=== PATIENT | female | born 1955 | race Caucasian/White ===

== ENCOUNTER → 2018-06-04 13:57 | Outpatient (CLI) | payer OTHER, SELFPAY ==
[2018-06-04 14:38] LABS: Alanine Aminotransferase 26 IU/L (9-52); Albumin 4.6 g/dL (3.5-5.0); Albumin Globulin Ratio 1.7 (1.0-2.8); Alkaline Phosphatase 79 U/L (38-126); Aspartate Aminotransferase 23 IU/L (14-36); BUN Creatinine Ratio 18.6 (6-22); Bilirubin Total 0.3 mg/dL (0.2-1.3); Blood Urea Nitrogen 13 mg/dL (7-17); Calcium 8.8 mg/dL (8.4-10.2); Carbon Dioxide 27 mmol/L (22-32); Chloride 100 mmol/L (98-107); Cholesterol 269 mg/dL (140-199); Estimated Glomerular Filt Rate > 60.0 mL/min (>60); Globulin 2.7 g/dL (1.7-4.1); Glucose 95 mg/dL (80-110); HDL Cholesterol 60 mg/dL (40-60); HEMOLYSIS < 15 (0-50); LDL Cholesterol Calculated 179 mg/dL (<100); Potassium 4.6 mmol/L (3.4-5.1); Sodium 141 mmol/L (137-145); Total Protein 7.3 g/dL (6.3-8.2); Triglycerides 150 mg/dL (35-150)
== END ==
PROVIDERS: PCP Family Medicine; Visit Provider Family Medicine
DX: E78.2 Mixed hyperlipidemia (principal)
CPT/HCPCS: 36415; 80053; 80061

== ENCOUNTER → 2018-11-17 09:28 | Outpatient (CLI) | payer OTHER, SELFPAY ==
[2018-11-17 10:05] LABS: Add Manual Diff / Slide Review NO; Basophils Absolute Auto 0 /uL (0-100); Basophils Percent Auto 0.8 % (0-2); Eosinophils Absolute Auto 100 /uL (0-450); Eosinophils Percent Auto 2.6 % (2-4); Hematocrit 40.8 % (36-46); Hemoglobin 13.3 g/dL (12.0-16.0); Lymphocytes Absolute Auto 1500 /uL (1100-4500); Lymphocytes Percent Auto 29.7 % (25-40); Mean Corpuscular HGB Conc 32.6 % (30-36); Mean Corpuscular Hemoglobin 28.3 PG (26-34); Mean Corpuscular Volume 86.7 fL (80-100); Monocytes Absolute Auto 400 /uL (0-900); Monocytes Percent Auto 7.6 % (3-14); Neutrophils Absolute Auto 2900 /uL (1500-7000); Neutrophils Percent Auto 59.3 % (50-75); Platelet Count 271 X10^3/uL (150-400); Red Cell Distribution Width 13.5 % (11.6-14.8); White Blood Cell Count 4.9 X10^3/uL (4.5-11.0)
[2018-11-17 11:06] LABS: Alanine Aminotransferase 30 IU/L (9-52); Albumin 4.4 g/dL (3.5-5.0); Albumin Globulin Ratio 1.6 (1.0-2.8); Alkaline Phosphatase 69 U/L (38-126); Aspartate Aminotransferase 26 IU/L (14-36); Bilirubin Total 0.3 mg/dL (0.2-1.3); Blood Urea Nitrogen 16 mg/dL (7-17); Calcium 9.1 mg/dL (8.4-10.2); Carbon Dioxide 30 mmol/L (22-32); Chloride 103 mmol/L (98-107); Cholesterol 264 mg/dL (140-199); Estimated Glomerular Filt Rate > 60.0 mL/min (>60); Globulin 2.7 g/dL (1.7-4.1); Glucose 98 mg/dL (80-110); HDL Cholesterol 56 mg/dL (40-60); HEMOLYSIS < 15 (0-50); LDL Cholesterol Calculated 178 mg/dL (<100); Sodium 140 mmol/L (137-145); Total Protein 7.1 g/dL (6.3-8.2); Triglycerides 148 mg/dL (35-150)
[2018-11-17 23:34] LABS: Vitamin D 25 Hydroxy (D3) 50.2 ng/mL (30.0-100.0)
[2018-11-17 23:47] LABS: Thyroid Stimulating Hormone 1.18 uIU/mL (0.47-4.68)
== END ==
PROVIDERS: PCP Family Medicine; Visit Provider Family Medicine
DX: E78.2 Mixed hyperlipidemia (principal); F32.9 Major depressive disorder, single episode, unspecified; R89.9 Unspecified abnormal finding in specimens from other organs, systems and tissues; Z13.0 Encounter for screening for diseases of the blood and blood-forming organs and certain disorders involving the immune mechanism; Z13.1 Encounter for screening for diabetes mellitus
CPT/HCPCS: 36415; 80053; 80061; 82306; 84443; 85025

== ENCOUNTER → 2019-03-13 12:32 | Outpatient (CLI) | payer OTHER, SELFPAY ==
[2019-03-13 13:20] LABS: Cholesterol 277 mg/dL (140-199); HDL Cholesterol 60 mg/dL (40-60); LDL Cholesterol Calculated 186 mg/dL (<100); Triglycerides 157 mg/dL (35-150)
== END ==
PROVIDERS: PCP Family Medicine; Visit Provider Family Medicine
DX: E78.2 Mixed hyperlipidemia (principal)
CPT/HCPCS: 36415; 80061

== ENCOUNTER → 2019-03-13 13:39 | Outpatient (CLI) | payer OTHER, SELFPAY ==
--- NOTE | 2019-03-13 | DI.MG.S_ITS ---
BILATERAL DIGITAL SCREENING MAMMOGRAM 3D/2D WITH CAD: 03/13/2019 CLINICAL: Routine screening. Comparison is made to exams dated: 06/18/2013 mammogram, 03/13/2011 mammogram, and 05/10/2009 mammogram - [facility]. The tissue of both breasts is predominantly fatty. Current study was also evaluated with a Computer Aided Detection (CAD) system. No significant masses, calcifications, or other findings are seen in either breast. There has been no significant interval change. IMPRESSION: NEGATIVE There is no mammographic evidence of malignancy. A 1 year screening mammogram is recommended. This exam was interpreted at Station ID: [id number]. NOTE: For mammograms, a report in lay terms will be sent to the patient. Approximately 15% of breast malignancies will not be visualized mammographically. In the management of a palpable breast mass, a negative mammogram must not discourage biopsy of a clinically suspicious lesion. Electronically Signed By: Florin avalos/evelyne:03/13/2019 14:20:41 letter sent: Normal Exam ACR BI-RADS Category 1: Negative [id number]
--- NOTE | 2019-03-13 13:40 | DI.RAD.S_ITS ---
This blank DEXA report has been sent in error by the PACS system. The correct and complete report will be forthcoming in 1-2 days. Thank you for your patience and understanding. Dictated by: Varun Hodgson M.D. on 03/13/2019 at 15:28 Approved by: Timur Kenney M.D. on 06/23/2019 at 9:36
== END ==
PROVIDERS: PCP Family Medicine; Visit Provider Family Medicine
DX: Z12.31 Encounter for screening mammogram for malignant neoplasm of breast (principal); Z13.820 Encounter for screening for osteoporosis; Z78.0 Asymptomatic menopausal state; Z82.62 Family history of osteoporosis; Z87.891 Personal history of nicotine dependence
CPT/HCPCS: 77063; 77067; 77080

== ENCOUNTER 2019-05-04 12:22 | Day surgery (SDC) | payer OTHER, SELFPAY ==
--- NOTE | 2019-05-04 | PATH_ITS ---
[facility] Accession Number: [id number] . 01 Material submitted: . PART A: cecum - CEAL POLYP PART B: ileo-cecal valve - ILEOCECAL VALVE POLYP PART C: colon - POLYP AT 20 . 02 Diagnosis: A. Cecum, Polyp, Biopsy: Tubular adenoma. . B. Ileocecal Valve, Polyp, Biopsy: Benign lymphoid aggregate. . C. Colon, Polyp at 20, Biopsy: Tubular adenoma. MRV 05/06/2019 1011 Local . 02 Electronically signed: . Janet Galicia MD, Pathologist NPI- [id number] . 01 Gross description: . Part A: CEAL POLYP: Received in formalin are 2 fragment(s) of tellez, soft tissue measuring 0.1 x 0.1 x 0.1 cm to 0.2 x 0.1 x 0.1 cm which is entirely submitted and submitted entirely in 1 cassette(s) Part B: ILEOCECAL VALVE POLYP: Received in formalin are 3 fragment(s) of tellez, soft tissue measuring 0.1 x 0.1 x 0.1 cm to 0.2 x 0.2 x 0.2 cm which is entirely submitted and submitted entirely in 1 cassette(s) Part C: POLYP AT 20: Received in formalin are multiple fragment(s) of tellez, soft tissue measuring 0.1 x 0.1 x 0.1 cm to 0.2 x 0.2 x 0.2 cm which is entirely submitted and submitted entirely in 1 cassette(s) /[facility] 05/05/2019 1825 Local . 02 Pathologist provided ICD-10: D12.0, D12.6 . 02 CPT . 098863, 425042, 530660 Performed at: 01 [facility] [address] [place] [address], [place], [place] [id number] MD Yohan Sosa MD Phone: [phone] Performed at: 02 [facility] [address] [place], [place] [id number] MD Janet Galicia MD Phone: [phone]
[2019-05-04 12:52] VITALS: BP 113/72; PULSE 99; RESP 18; TEMP 36.4; O2SAT 93
[2019-05-04 13:00] VITALS: BMI 29.5
[2019-05-04] MEDS: LACTATED RINGERS 1,000 ML 42 ML IV (13:12)
--- NOTE | 2019-05-04 13:14 | SUR.PREOP ---
Talking non-stop, states that she is very anxious, ambulated to the bathroom and voided. Spouse here.
--- NOTE | 2019-05-04 14:20 | PM.HP.1 ---
History of Present Illness History of Present Illness Date Patient Seen: 05/04/19 Time Patient Seen: 14:20 Chief complaint: [id number] Narrative: The patient is here for colonoscopy. She is extremely nervous and insisted on deep sedation with the involvement of anesthesia as she did not tolerate simple sedation well. Patient History Medical History Ankle pain (Chronic ~2012) Anorexia nervosa (Chronic) Anxiety (Chronic) Arthritis (Acute) Carpal tunnel syndrome (Chronic ~1989) Chicken pox (Resolved ~1960) Colon polyps (Chronic ~2007) Hearing deficit (Chronic) Hearing loss (Chronic ~1994) Hemorrhoid (Chronic ~08/2011) History of falling (Acute) History of pneumonia (Acute) Knee pain (Chronic ~2002) Measles (Resolved ~1957) Migraines (Chronic ~1993) Mumps (Resolved ~1961) Osteoarthritis (Chronic ~2003) Plantar warts (Resolved ~1995) Pneumonia (Acute) Post traumatic stress disorder (PTSD) (Chronic) Recurrent sinusitis (Chronic) Seasonal allergies (Chronic) Shoulder pain (Chronic ~2003) Tinnitus (Chronic ~1993) Vertigo (Chronic ~2012) Surgical History Anesthesia (Resolved) History of carpal tunnel repair History of ectopic (Resolved ~1989) History of sinus surgery (Resolved ~1998) History of third molar tooth extraction History of tonsillectomy Status post breast reduction Status post colonoscopy Status post colonoscopy Status post hysterectomy Status post knee surgery Status post rotator cuff repair Family History Mother Hypertension Social History marital status: household members: spouse occupational status: disabled Smoking Status: Never smoker alcohol intake: never substance use type: does not use Family & Social History Family History Mother Hypertension Social History: household members spouse Tobacco & Substance use: Smoking Status Never smoker alcohol intake never Meds Home Medications and Allergies Home Medications Medication Instructions Recorded Confirmed Type CALCIUM CARBONATE/VITAMIN D3 600 mg PO Q DAY #0 10/30/09 04/23/19 History (Oyster Shell Calcium-Vit D Tab) CHOLECALCIFEROL (VITAMIN D3) 2,000 #0 03/28/10 09/19/19 History (Vitamin D3) Coenzyme Q10 (#COQ10) 60 mg PO HS #0 12/19/11 04/23/19 History MULTIVITAMIN (#MULTIPLE VITAMINS) 1 cap PO Q DAY #0 12/19/11 04/23/19 History Magnesium Aspartate/Potassiu 1 cap PO Q DAY #0 12/19/11 04/23/19 History (#ASPARTATE MG & K 90 MG-90 MG) prochlorperazine 25 mg rectal 25 mg MI Q6HP PRN #20 supp 02/03/18 04/23/19 Rx suppository carisoprodol 350 mg tablet 350 mg PO TIDP #90 tab 04/23/19 04/23/19 Rx clonazepam 2 mg tablet 4 mg PO HS #60 tab 04/23/19 04/23/19 Rx dextroamphetamine-amphetamine 10 10 mg PO BID #60 tab 04/23/19 04/23/19 Rx mg tablet hydrocodone 5 mg-acetaminophen 325 1 tab PO Q4HP PRN #60 tab 04/23/19 04/23/19 Rx mg tablet hydroxyzine HCl 25 mg tablet 25 mg PO Q6HP PRN #50 tab 04/23/19 04/23/19 Rx pravastatin 40 mg tablet 80 mg PO HS #180 tab 04/23/19 04/23/19 Rx prochlorperazine maleate 5 mg 5 mg PO Q6-8H PRN #60 tab 04/23/19 04/23/19 Rx tablet sumatriptan 20 mg/actuation nasal 20 mg INTRANASAL PRN #1 spray 04/23/19 04/23/19 Rx spray sumatriptan succinate 100 mg tablet 100 mg PO SEE INSTRUCTIONS #12 tab 04/23/19 04/23/19 Rx sumatriptan succinate 6 mg/0.5 mL 6 mg SUBCUT SEE INSTRUCTIONS #4 ea 04/23/19 04/23/19 Rx subcutaneous solution zolpidem 10 mg tablet 10 mg PO HS #14 tab 04/23/19 04/23/19 Rx Allergies Allergy/AdvReac Type Severity Reaction Status Date / Time doxycycline [DOXYCYCLINE] Allergy Severe RASH ALL Verified 05/04/19 12:48 OVER azithromycin [From ZITHROMAX] Allergy Mild nasuea Verified 05/04/19 12:48 cefuroxime [CEFUROXIME] Allergy Mild NAUSEA Verified 05/04/19 12:48 codeine [CODEINE] Allergy Mild SHAKES, Verified 05/04/19 12:48 rash, fever, nausea Penicillins [PENICILLINS] Allergy Mild HIVES, Verified 05/04/19 12:48 fever, nausea pravastatin [PRAVASTATIN] Allergy Mild MYALGIAS, Verified 05/04/19 12:48 AND JOINT PAIN propoxyphene [PROPOXYPHENE] Allergy Mild Rash, Verified 05/04/19 12:48 fever, nausea tetracycline [TETRACYCLINE] Allergy Unknown Rash, Verified 05/04/19 12:48 fever, nausea steroid Allergy Mild misc Uncoded 05/04/19 12:48 reactions, pain, swelling. Review of Systems Review of Systems Narrative: No heart or breathing issues at this time. Not sure if she still having blood in her bowel movements as she does not look in her stool. Clear yellow was coming out now. No seizures or blackouts. She was having migraines and they have broke and she says. Exam Vital Signs (past 8 hours): - 05/04/19 12:52 Temperature 97.6 F Pulse Rate 99 H Respiratory Rate 18 Blood Pressure 113/72 Pulse Oximetry 93 Oxygen Delivery Method Room Air Narrative Exam Narrative: Operative no apparent distress. Eyes nonicteric. Lungs are clear to auscultation without rales or rhonchi. Heart regular rate and rhythm without murmur gallop. Abdomen is scaphoid soft nontender without mass. Assessment & Plan Assessment & Plan narrative: The patient for a screening colonoscopy. I have discussed the procedure with them. Risks of bleeding, perforation which would necessitate major operation, failure to find remove all lesions, the potential tattoo were all discussed. All questions were answered. They wished to proceed.
--- NOTE | 2019-05-04 15:00 | PM.OP.ENDO ---
Operative Date/Time/Diagnoses Date of procedure: 05/04/19 Time of procedure: 15:00 Pre-op diagnosis: Rectal bleeding Post-op diagnosis: same (Polyp in the cecum minute 20 cm. Sigmoid diverticulosis. Very floppy ileocecal valve which I biopsied. ) Procedure & Clinicians Study performed: Colonoscopy with cold biopsy Same procedure as scheduled: Yes Indications: Rectal bleeding determine causes Surgeon: Rakesh Tong Procedure Notes SCOAP/Timeout: Performed Procedure in detail: Due to patient anxiety and the fact that she does not tolerate narcotics patient underwent monitored anesthesia care with the use of propofol. Digital exam was unremarkable. The scope was inserted and advanced through the rectum into the sigmoid, descending, transverse, and ascending colon. Patient was noted to have sigmoid diverticulosis. The cecum was reached identified by the ileocecal valve and the appendiceal opening. The ileocecal valve hung down in a very odd manner. I could not tell if this was due to prolapse or lesion on it. I went so far as the retroflex in the cecum but could not get a good look at it en face. Therefore I biopsied the surface to make sure there was no neoplasm causing the appearance. There is also small polyp in the cecum which I biopsied and completely removed. This was placed in a separate container. The scope was gradually brought out. One other Polyp was found at 20 cm from the anal verge. It was repeatedly biopsied and removed.. The scope ultimately was retroflexed in the rectum. The appearance was normal. There was no significant hemorrhoids or ulceration.. The scope was removed and the patient tolerated the procedure well. The prep was good. Scope withdrawal time: 10 minutes(13 total) Sedation minutes: 0 (Deep sedation with monitored anesthesia care) Findings: diverticulosis and polyp Specimen(s): other (Polyps and biopsy of ileocecal valve) Complications: none Post-procedure Recommendations: Colonscopy in 5 years Follow up: as needed Disposition: PACU
[2019-05-04 15:01] VITALS: BP 91/63; PULSE 83; RESP 14; TEMP 36.6; O2SAT 96
[2019-05-04 15:06] VITALS: BP 99/67; PULSE 88; RESP 18; O2SAT 97
[2019-05-04 15:11] VITALS: BP 120/77; PULSE 90; RESP 16; O2SAT 98
[2019-05-04 15:16] VITALS: BP 118/78; PULSE 91; RESP 18; TEMP 36.3; O2SAT 96
[2019-05-04 15:30] VITALS: BP 103/74; PULSE 93; RESP 18; O2SAT 97
== END 2019-05-04 15:43 | disposition home or self-care (01) ==
PROVIDERS: PCP Family Medicine; Visit Provider Specialist
PROC: 0DJD8ZZ Inspection of Lower Intestinal Tract, Via Natural or Artificial Opening Endoscopic (ICD-10-PCS; CPT 45378; principal; 2019-05-04 13:45)
DX: K62.5 Hemorrhage of anus and rectum (principal); F41.9 Anxiety disorder, unspecified; K57.30 Diverticulosis of large intestine without perforation or abscess without bleeding; D12.0 Benign neoplasm of cecum; D12.6 Benign neoplasm of colon, unspecified
CPT/HCPCS: 45380; J2250; J2704; J3010

== ENCOUNTER → 2020-02-04 11:18 | Outpatient (CLI) | payer OTHER, SELFPAY ==
[2020-02-04 12:00] LABS: Add Manual Diff / Slide Review NO; Basophils Absolute Auto 0 /uL (0-100); Basophils Percent Auto 0.8 % (0-2); Eosinophils Absolute Auto 100 /uL (0-450); Eosinophils Percent Auto 1.3 % (2-4); Hematocrit 43.8 % (36-46); Hemoglobin 15.2 g/dL (12.0-16.0); Lymphocytes Absolute Auto 1400 /uL (1100-4500); Lymphocytes Percent Auto 29.1 % (25-40); Mean Corpuscular HGB Conc 34.6 % (30-36); Mean Corpuscular Volume 86.6 fL (80-100); Monocytes Absolute Auto 200 /uL (0-900); Neutrophils Absolute Auto 3000 /uL (1500-7000); Neutrophils Percent Auto 63.8 % (50-75); Platelet Count 311 X10^3/uL (150-400); Red Blood Cell Count 5.06 X10^6/uL (4.0-5.2); Red Cell Distribution Width 12.9 % (11.6-14.8); White Blood Cell Count 4.7 X10^3/uL (4.5-11.0)
[2020-02-04 12:13] LABS: Alanine Aminotransferase 21 IU/L (<35); Albumin 4.7 g/dL (3.5-5.0); Albumin Globulin Ratio 1.8 (1.0-2.8); Alkaline Phosphatase 70 U/L (38-126); Aspartate Aminotransferase 26 IU/L (14-36); BUN Creatinine Ratio 18.6 (6-22); Bilirubin Total 0.5 mg/dL (0.2-1.3); Blood Urea Nitrogen 11 mg/dL (7-17); Calcium 9.8 mg/dL (8.4-10.2); Carbon Dioxide 29 mmol/L (22-32); Chloride 102 mmol/L (98-107); Estimated Glomerular Filt Rate > 60.0 mL/min (>60); Globulin 2.6 g/dL (1.7-4.1); Glucose 99 mg/dL (80-110); HDL Cholesterol 67 mg/dL (40-60); HEMOLYSIS < 15 (0-50); Potassium 5.2 mmol/L (3.4-5.1); Sodium 138 mmol/L (137-145); Total Protein 7.3 g/dL (6.3-8.2); Triglycerides 139 mg/dL (35-150)
[2020-02-04 12:20] LABS: Cholesterol 346 mg/dL (140-199); LDL Cholesterol Calculated 251 mg/dL (<100)
[2020-02-04 12:43] LABS: Thyroid Stimulating Hormone 0.682 uIU/mL (0.47-4.68)
== END ==
PROVIDERS: PCP Family Medicine; Referring Provider Family Medicine; Visit Provider Family Medicine
DX: F32.9 Major depressive disorder, single episode, unspecified (principal); Z84.89 Family history of other specified conditions
CPT/HCPCS: 36415; 80053; 80061; 81291; 84443; 85025

== ENCOUNTER → 2020-02-10 15:31 | Outpatient (CLI) | payer OTHER, SELFPAY ==
[2020-02-11 04:39] LABS: Homocysteine 7.4 umol/L (0.0-17.2)
== END ==
PROVIDERS: PCP Family Medicine; Referring Provider Family Medicine; Visit Provider Family Medicine
DX: F41.9 Anxiety disorder, unspecified (principal)
CPT/HCPCS: 36415; 83090

== ENCOUNTER → 2020-05-24 10:58 | Outpatient (CLI) | payer OTHER, SELFPAY ==
[2020-05-25 17:52] LABS: BUN Creatinine Ratio 33.3 (6-22); Blood Urea Nitrogen 22 mg/dL (7-17); Calcium 9.2 mg/dL (8.4-10.2); Carbon Dioxide 31 mmol/L (22-32); Chloride 103 mmol/L (98-107); Cholesterol 293 mg/dL (140-199); Estimated Glomerular Filt Rate > 60.0 mL/min (>60); Glucose 95 mg/dL (80-110); HDL Cholesterol 68 mg/dL (40-60); HEMOLYSIS < 15 (0-50); LDL Cholesterol Calculated 197 mg/dL (<100); Potassium 4.8 mmol/L (3.4-5.1); Sodium 140 mmol/L (137-145); Triglycerides 138 mg/dL (35-150)
== END ==
PROVIDERS: PCP Family Medicine; Referring Provider Family Medicine; Visit Provider Family Medicine
DX: E78.2 Mixed hyperlipidemia (principal)
CPT/HCPCS: 36415; 80048; 80061

== ENCOUNTER → 2021-12-30 10:32 | Outpatient (CLI) | payer OTHER, SELFPAY ==
[2021-12-30 11:09] LABS: Add Manual Diff / Slide Review NO; Basophils Absolute Auto 0 /uL (0-100); Basophils Percent Auto 0.6 % (0-2); Eosinophils Absolute Auto 100 /uL (0-450); Eosinophils Percent Auto 2.3 % (2-4); Hematocrit 39.3 % (36-46); Hemoglobin 13.3 g/dL (12.0-16.0); Lymphocytes Absolute Auto 1600 /uL (1100-4500); Lymphocytes Percent Auto 27.3 % (25-40); Mean Corpuscular HGB Conc 33.9 % (30-36); Mean Corpuscular Hemoglobin 29.1 PG (26-34); Mean Corpuscular Volume 85.6 fL (80-100); Monocytes Absolute Auto 400 /uL (0-900); Monocytes Percent Auto 7.2 % (3-14); Neutrophils Absolute Auto 3600 /uL (1500-7000); Neutrophils Percent Auto 62.6 % (50-75); Platelet Count 324 X10^3/uL (150-400); Red Blood Cell Count 4.59 X10^6/uL (4.0-5.2); Red Cell Distribution Width 13.2 % (11.6-14.8); White Blood Cell Count 5.8 X10^3/uL (4.5-11.0)
[2021-12-30 11:28] LABS: Alanine Aminotransferase 46 IU/L (<35); Albumin 4.4 g/dL (3.5-5.0); Albumin Globulin Ratio 1.7 (1.0-2.8); Alkaline Phosphatase 72 U/L (38-126); Aspartate Aminotransferase 47 IU/L (14-36); BUN Creatinine Ratio 22.9 (6-22); Bilirubin Total 0.4 mg/dL (0.2-1.3); Blood Urea Nitrogen 16 mg/dL (7-17); Calcium 9.2 mg/dL (8.4-10.2); Carbon Dioxide 29 mmol/L (22-32); Chloride 103 mmol/L (98-107); Estimated Glomerular Filt Rate > 60 mL/min (>60); Globulin 2.6 g/dL (1.7-4.1); Glucose 101 mg/dL (80-110); HDL Cholesterol 91 mg/dL (40-60); Sodium 138 mmol/L (137-145); Triglycerides 135 mg/dL (35-150)
[2021-12-30 11:33] LABS: HEMOLYSIS 43 (0-50)
[2021-12-30 11:40] LABS: Cholesterol 349 mg/dL (140-199); LDL Cholesterol Calculated 231 mg/dL (<100); Potassium 5.4 mmol/L (3.4-5.1)
== END ==
PROVIDERS: PCP Family Medicine; Referring Provider Family Medicine; Visit Provider Family Medicine
DX: E78.2 Mixed hyperlipidemia (principal); F32.9 Major depressive disorder, single episode, unspecified; F41.9 Anxiety disorder, unspecified; G89.4 Chronic pain syndrome
CPT/HCPCS: 36415; 80053; 80061; 84443; 85025

== ENCOUNTER → 2022-02-12 13:10 | Outpatient (CLI) | payer OTHER, SELFPAY ==
--- NOTE | 2022-02-12 13:13 | DI.RAD.S_ITS ---
PROCEDURE: XR KNEE RT 3V INDICATIONS: bilateral knee, hip and low back pain TECHNIQUE: 3 views of the knee were acquired. COMPARISON: [facility], , KNEE 3V RIGHT, 10/30/2009, 17:10. FINDINGS: Bones: No fractures or dislocations. Lfhx-ie-zgxjqfmq tricompartmental osteoarthritis is seen most prominent in medial femoral tibial compartment. No suspicious bony lesions. Soft tissues: Small suprapatella joint effusion. No suspicious soft tissue calcifications. IMPRESSION: Fmic-cv-pxwvajqy tricompartmental osteoarthritis more prominent in medial femoral tibial compartment. No acute fracture or dislocation. Small joint effusion. Dictated by: Rd Zacarias M.D. on 02/12/2022 at 15:10 Approved by: Rd Zacarias M.D. on 02/12/2022 at 15:10
--- NOTE | 2022-02-12 13:13 | DI.RAD.S_ITS ---
PROCEDURE: XR LUMBAR SPINE 2-3V INDICATIONS: bilateral knee, hip and low back pain TECHNIQUE: 3 views of the lumbar spine were acquired. COMPARISON: [facility], , -SPINE 2-3 VIEWS, 02/17/2015, 12:27. FINDINGS: Bones: 5 hru-ucs-yvnkwhn vertebrae are present. There is loss of normal lumbar lordosis, as well roughly 7 mm of retrolisthesis of L5 on S1, and otherwise normal bony alignment. No vertebral body compression fractures. No suspicious bony lesions. Multilevel disc space narrowing and endplate osteophyte formation throughout the lumbar spine. Facet hypertrophy throughout the lumbar spine. Soft tissues: Overlying bowel gas pattern is normal. No suspicious soft tissue calcifications. IMPRESSION: Multilevel degenerative disc and facet disease. No acute fracture. No osseous lesion. If symptoms and/or clinical suspicion for pathology persist, further assessment with repeat, or advanced imaging (e.g., CT, MRI, or bone scan) may be helpful for further assessment. Dictated by: Elena Malhotra M.D. on 02/12/2022 at 15:22 Transcribed by: KELSI on 02/12/2022 at 15:23 Approved by: Elena Malhotra M.D. on 02/12/2022 at 16:58
--- NOTE | 2022-02-12 13:13 | DI.RAD.S_ITS ---
PROCEDURE: XR HIP W PEL IF DONE ALONZO MIN 4V INDICATIONS: bilateral knee, hip and low back pain TECHNIQUE: AP pelvis with lateral view(s) of the bilateral hip(s). COMPARISON: None. FINDINGS: Bones: No fractures or dislocations. Pelvic ring appears intact. No suspicious bony lesions. Mild periarticular osteophyte formation at the bilateral hip joints. Soft tissues: The visualized bowel gas pattern is normal. No suspicious soft tissue calcifications. IMPRESSION: Bilateral hip osteoarthritis. No acute fracture. No osseous lesion. If symptoms and/or clinical suspicion for pathology persist, further assessment with repeat, or advanced imaging (e.g., CT, MRI, or bone scan) may be helpful for further assessment. Dictated by: Elena Malhotra M.D. on 02/12/2022 at 15:24 Transcribed by: KELSI on 02/12/2022 at 15:24 Approved by: Elena Malhotra M.D. on 02/12/2022 at 16:25
--- NOTE | 2022-02-12 13:13 | DI.RAD.S_ITS ---
PROCEDURE: XR KNEE LT 3V INDICATIONS: bilateral knee, hip and low back pain TECHNIQUE: 3 views of the knee were acquired. COMPARISON: [facility], , KNEE 3V RIGHT, 10/30/2009, 17:10. FINDINGS: Bones: No fractures or dislocations. Yzds-po-scrffzcu tricompartmental osteoarthritis is seen more prominent in medial femoral tibial compartment. No suspicious bony lesions. Soft tissues: No joint effusion. No suspicious soft tissue calcifications. IMPRESSION: Zhmj-xr-spptbskt tricompartmental osteoarthritis more prominent in medial femoral tibial compartment. No fracture or dislocation. No significant joint effusion. Dictated by: Rd Zacarias M.D. on 02/12/2022 at 15:10 Approved by: Rd Zacarias M.D. on 02/12/2022 at 15:11
== END ==
PROVIDERS: PCP Family Medicine; Referring Provider Family Medicine; Visit Provider Family Medicine
DX: M17.0 Bilateral primary osteoarthritis of knee (principal); M16.0 Bilateral primary osteoarthritis of hip; M51.36 Other intervertebral disc degeneration, lumbar region; M25.551 Pain in right hip; M25.552 Pain in left hip; M25.561 Pain in right knee; M25.562 Pain in left knee
CPT/HCPCS: 72100; 73522; 73562

== ENCOUNTER → 2022-11-20 09:51 | Outpatient (CLI) | payer OTHER, SELFPAY ==
--- NOTE | 2022-11-20 09:55 | DI.RAD.S_ITS ---
PROCEDURE: XR KNEE LT 3V INDICATIONS: bilateral hip and knee pain TECHNIQUE: 3 views of the knee were acquired. COMPARISON: [facility], , XR KNEE LT 3V, 02/12/2022, 13:20. FINDINGS: Bones: No fractures or dislocations. No suspicious bony lesions. Mild degenerative joint disease. Soft tissues: Small joint effusion. A soft tissue calcification posterior knee is probably a phlebolith or a calcified lymph node. IMPRESSION: Mild degenerative joint disease and small knee joint effusion. Dictated by: Julio Barron M.D. on 11/20/2022 at 12:54 Approved by: Julio Barron M.D. on 11/20/2022 at 12:57
--- NOTE | 2022-11-20 09:55 | DI.RAD.S_ITS ---
PROCEDURE: XR HIP W PEL IF DONE ALONZO MIN 4V INDICATIONS: bilateral hip and knee pain TECHNIQUE: AP pelvis with lateral view(s) of the left hip(s). COMPARISON: [facility], PELVIS WITH BILATERAL HIPS, 02/17/2015, 12:25. [facility], L-SPINE 2-3 VIEWS, 02/17/2015, 12:27. [facility], XR HIP W PEL IF DONE ALONZO 3TO4V, 02/12/2022, 13:20. FINDINGS: Bones: No fractures or dislocations. Pelvic ring appears intact. No suspicious bony lesions. Bpod-bt-xnbooidf degenerative joint disease in hips and sacroiliac joints bilaterally. Moderate to severe degenerative disc disease and facet arthropathy at L4-L5 and L5-S1. Soft tissues: The visualized bowel gas pattern is normal. No suspicious soft tissue calcifications. IMPRESSION: 1. Kqjb-nk-acyqhptt degenerative joint disease in hips and sacroiliac joints bilaterally. 2. Degenerative disc and facet disease in the lower lumbar spine. Dictated by: Julio Barron M.D. on 11/20/2022 at 13:48 Approved by: Julio Barron M.D. on 11/20/2022 at 13:49
--- NOTE | 2022-11-20 09:55 | DI.RAD.S_ITS ---
PROCEDURE: XR KNEE RT 3V INDICATIONS: bilateral hip and knee pain TECHNIQUE: 3 views of the knee were acquired. COMPARISON: [facility], , KNEE 3V RIGHT, 10/30/2009, 17:10. [facility], , XR KNEE RT 3V, 02/12/2022, 13:20. FINDINGS: Bones: No fractures or dislocations. No suspicious bony lesions. Moderate tricompartmental knee joint degeneration effusion. Soft tissues: Small joint effusion. There is a soft tissue density posterior to the knee suggesting appearance of a mass. IMPRESSION: 1. Moderate degenerative joint disease. 2. Small knee joint effusion. 3. Question a mass posterior to the knee. Recommend MRI for further evaluation. Dictated by: Julio Barron M.D. on 11/20/2022 at 12:57 Approved by: Julio Barron M.D. on 11/20/2022 at 13:01
== END ==
PROVIDERS: PCP Family Medicine; Referring Provider Family Medicine; Visit Provider Family Medicine
DX: M17.0 Bilateral primary osteoarthritis of knee (principal); M46.1 Sacroiliitis, not elsewhere classified; M16.0 Bilateral primary osteoarthritis of hip; M51.36 Other intervertebral disc degeneration, lumbar region; M47.816 Spondylosis without myelopathy or radiculopathy, lumbar region; M25.551 Pain in right hip; M25.552 Pain in left hip; M25.561 Pain in right knee; M25.562 Pain in left knee; M25.461 Effusion, right knee; M25.462 Effusion, left knee
CPT/HCPCS: 73522; 73562

== ENCOUNTER → 2022-12-10 10:56 | Outpatient (CLI) | payer OTHER, SELFPAY ==
[2022-12-10 12:13] LABS: Alanine Aminotransferase 34 IU/L (<35); Albumin 4.6 g/dL (3.5-5.0); Albumin Globulin Ratio 1.5 (1.0-2.8); Alkaline Phosphatase 67 U/L (38-126); Aspartate Aminotransferase 33 IU/L (14-36); Bilirubin Total 0.5 mg/dL (0.2-1.3); Blood Urea Nitrogen 13 mg/dL (7-17); Calcium 9.5 mg/dL (8.4-10.2); Carbon Dioxide 32 mmol/L (22-32); Chloride 98 mmol/L (98-107); Cholesterol 293 mg/dL (140-199); Estimated Glomerular Filt Rate > 60 mL/min (>60); Glucose 100 mg/dL (80-110); HDL Cholesterol 73 mg/dL (40-60); HEMOLYSIS < 15 (0-50); LDL Cholesterol Calculated 190 mg/dL (<100); Potassium 4.8 mmol/L (3.4-5.1); Sodium 137 mmol/L (137-145); Total Protein 7.6 g/dL (6.3-8.2); Triglycerides 151 mg/dL (35-150)
== END ==
PROVIDERS: PCP Family Medicine; Referring Provider Family Medicine; Visit Provider Family Medicine
DX: E78.2 Mixed hyperlipidemia (principal); R74.8 Abnormal levels of other serum enzymes
CPT/HCPCS: 36415; 80053; 80061

== ENCOUNTER → 2022-12-25 12:27 | Outpatient (CLI) | payer OTHER, SELFPAY ==
--- NOTE | 2022-12-25 12:28 | DI.MG.S_ITS ---
BILATERAL DIGITAL SCREENING MAMMOGRAM 3D/2D WITH CAD: 12/25/2022 CLINICAL: Routine screening. Comparison is made to exams dated: 03/13/2019 mammogram, 03/13/2011 mammogram, and 06/18/2013 mammogram - [facility]. There are scattered areas of fibroglandular density in both breasts (category b / 25%-50% glandular tissue). Current study was also evaluated with a Computer Aided Detection (CAD) system. No significant masses, calcifications, or other findings are seen in either breast. There has been no significant interval change. IMPRESSION: NEGATIVE There is no mammographic evidence of malignancy. A 1 year screening mammogram is recommended. Based on the Tyrer Cuzick model (a risk assessment model) the patient's lifetime risk is 7.3% and her 10 year risk is 4.3%. According to the ACR, ACS, and NCCN guidelines, an annual breast MRI exam along with mammogram is recommended if the patient's lifetime risk is 20% or greater. This exam was interpreted at Station ID: [id number]. NOTE: For mammograms, a report in lay terms will be sent to the patient. Approximately 15% of breast malignancies will not be visualized mammographically. In the management of a palpable breast mass, a negative mammogram must not discourage biopsy of a clinically suspicious lesion. Electronically Signed By: Luis Carlos motley/evelyne:12/25/2022 14:51:03 letter sent: Normal Exam ACR BI-RADS Category 1: Negative [id number]
--- NOTE | 2022-12-25 12:38 | DI.DEXA.S_ITS ---
Bone Density Report Name: HUMBERTO MILLS Age: 67 Sex: Female Ethnicity: White Date of : 1955 Indication: postmenopausal; screening for osteoporosis; Referring Provider: KALEB MONTESINOS Study: Bone densitometry was performed. Exam Date: December 25, 2022 Accession number: [id number] Bone Density: Region BMD T-score Z-score Classification AP Spine(L2, L3) 1.324 2.4 4.4 Normal Femoral Neck (Left) 0.736 -1.0 0.7 Normal Total Hip (Left) 0.964 0.2 1.6 Normal Femoral Neck (Right) 0.778 -0.6 1.0 Normal Total Hip (Right) 0.986 0.4 1.7 Normal Total Hip Mean 0.975 0.3 1.7 Normal World Health Organization criteria for BMD impression classify patients as: Normal (T-score at or above -1.0), Osteopenia (T-score between -1.0 and -2.5), or Osteoporosis (T-score at or below -2.5). 10-year Fracture Risk: FRAX not reported because: All T-scores for Spine Total, Hip Total, Femoral Neck at or above -1.0 Impression: The patient has normal bone mass. Discussion: BONE DENSITY IS ABOVE THE MINIMUM DESIRABLE LEVEL AT ALL SKELETAL SITES TESTED. This patient?s bone mineral density is above the minimum desirable level (T-score -1.0 or better) at all sites measured. The patient should follow a healthful lifestyle (good nutrition with adequate calcium and vitamin D, and appropriate weight-bearing exercise). Follow-Up: Consider repeating this study in 5 years or sooner if there is some new clinical indication. Reported by: HIGINIO FLORES M.D. on 12/25/2022 12:48:00 PM.
== END ==
PROVIDERS: PCP Family Medicine; Referring Provider Family Medicine; Visit Provider Family Medicine
DX: Z12.31 Encounter for screening mammogram for malignant neoplasm of breast (principal)
CPT/HCPCS: 77063; 77067; 77080

== ENCOUNTER → 2023-09-05 08:59 | Outpatient (CLI) | payer OTHER, SELFPAY ==
[2023-09-05 09:55] LABS: Appearance Urine UA CLEAR; Bilirubin Urine UA NEGATIVE (NEGATIVE); Color Urine UA YELLOW; Glucose Urine UA NEGATIVE (Negative); Ketones Urine UA NEGATIVE (NEGATIVE); Leukocyte Esterase Urine UA NEGATIVE (NEGATIVE); Nitrite Urine UA NEGATIVE (Negative); Occult Blood Urine UA NEGATIVE (Negative); Protein Urine UA NEGATIVE (Negative); Specific Gravity Urine UA <=1.005 (1.000-1.035); Urobilinogen Urine UA 0.2 E.U./dL (0.2)
[2023-09-05 10:20] LABS: pH Urine UA 7.5 (4.5-8.0)
[2023-09-05 10:32] LABS: Bacteria Urine Moderate (10-30); Culture Indicated Urine Cult Not Indicated; RBC Urine None Seen (0-5/HPF); Squamous Epithelial Cell Urine 0-1 /HPF (0-5/HPF); Urine Volume 10mL (spun); WBC Urine None Seen (0-5/HPF)
[2023-09-05 10:54] LABS: Microalbumin Urine Random < 0.6 mg/dL (0-1.6)
== END ==
PROVIDERS: PCP Family Medicine; Referring Provider Family Medicine; Visit Provider Family Medicine
DX: Z00.00 Encounter for general adult medical examination without abnormal findings (principal); E78.49 Other hyperlipidemia; F41.9 Anxiety disorder, unspecified; G43.909 Migraine, unspecified, not intractable, without status migrainosus; G89.4 Chronic pain syndrome; R30.0 Dysuria
CPT/HCPCS: 81001; 82043; 82570

== ENCOUNTER → 2024-06-13 11:03 | Outpatient (CLI) | payer OTHER, SELFPAY ==
[2024-06-13 12:00] LABS: Rheumatoid Factor 10.1 IU/mL (<12.0)
[2024-06-15 16:11] LABS: CCP Antibodies IgG/IgA 4 units (0-19)
== END ==
PROVIDERS: PCP Family Medicine; Referring Provider Physician Assistant; Visit Provider Physician Assistant
DX: G89.4 Chronic pain syndrome (principal); F33.9 Major depressive disorder, recurrent, unspecified; R25.1 Tremor, unspecified; F41.9 Anxiety disorder, unspecified
CPT/HCPCS: 36415; 85652; 86200; 86430

== ENCOUNTER → 2024-10-02 14:13 | Outpatient (CLI) | payer OTHER, SELFPAY | PROVIDERS: PCP Family Medicine; Visit Provider Nurse Practitioner Family | DX: N89.8 Other specified noninflammatory disorders of vagina (principal) | CPT/HCPCS: 87210 ==

== ENCOUNTER → 2024-10-30 16:17 | Outpatient (CLI) | payer OTHER, SELFPAY ==
--- NOTE | 2024-10-30 16:19 | DI.RAD.S_ITS ---
PROCEDURE: XR THORACIC SPINE 3V INDICATIONS: fall with neck, mid back and low spine pain TECHNIQUE: 3 views of the thoracic spine were acquired. COMPARISON: None. FINDINGS: Thoracic spine curvature and alignment: Mild rightward curve of the cervical upper thoracic spine appreciated Bones: There are no acute fracture identified. Very minimal chronic wedging of the upper midthoracic vertebral bodies appreciated Disc spaces: Moderate degenerative disc disease noted throughout the thoracic spine Soft tissues: No soft tissue swelling, calcification or mass. IMPRESSION: Moderate degenerative disc disease throughout the thoracic spine. No acute fracture identified Dictated by: Zachariah Diaz M.D. on 11/02/2024 at 10:39 Approved by: Zachariah Diaz M.D. on 11/02/2024 at 10:41
--- NOTE | 2024-10-30 16:19 | DI.RAD.S_ITS ---
PROCEDURE: XR CERVICAL SPINE 2V OR 3V INDICATIONS: fall with neck, mid back and low spine pain TECHNIQUE: Three views of the cervical spine were acquired. COMPARISON: None. FINDINGS: Cervical spine curvature and alignment: Normal. Bones: There are no fracture or other osseous abnormalities. Disc spaces: Mild C5-6 degenerative disc disease noted. There is minimal degenerative facet disease C3-4 through C5-6 Soft tissues: No soft tissue swelling, calcification or mass. IMPRESSION: Degeneration. No posttraumatic change Dictated by: Zachariah Diaz M.D. on 11/02/2024 at 10:41 Approved by: Zachariah Diaz M.D. on 11/02/2024 at 10:43
--- NOTE | 2024-10-30 16:19 | DI.RAD.S_ITS ---
PROCEDURE: XR LUMBAR SPINE 2-3V INDICATIONS: fall with neck, mid back and low spine pain TECHNIQUE: 3 views of the lumbar spine were acquired. COMPARISON: [facility], CR, XR LUMBAR SPINE 2-3V, 02/12/2022, 13:20. FINDINGS: Lumbar spine curvature and alignment: Slight leftward curve appreciated Bones: There are no osseous abnormalities. Disc spaces: Severe degenerative disc disease L2-3 L3-4 L4-5 and mild degenerative disease L5-S1 noted. Moderate L5-S1 degenerative facet disease noted Intervertebral foramen: Moderate narrowing of the L4-5 and L5-S1 IV foramen. Soft tissues: No soft tissue swelling, calcification or mass. IMPRESSION: Degeneration Dictated by: Zachariah Diaz M.D. on 11/02/2024 at 10:43 Approved by: Zachariah Diaz M.D. on 11/02/2024 at 10:45
== END ==
PROVIDERS: PCP Family Medicine; Referring Provider Family Medicine; Visit Provider Family Medicine
DX: S13.4XXA Sprain of ligaments of cervical spine, initial encounter (principal); M50.322 Other cervical disc degeneration at C5-C6 level; M51.34 Other intervertebral disc degeneration, thoracic region; M51.360 Other intervertebral disc degeneration, lumbar region with discogenic back pain only; M51.370 Other intervertebral disc degeneration, lumbosacral region with discogenic back pain only; M47.817 Spondylosis without myelopathy or radiculopathy, lumbosacral region; M48.061 Spinal stenosis, lumbar region without neurogenic claudication; M48.07 Spinal stenosis, lumbosacral region; M54.9 Dorsalgia, unspecified; G89.4 Chronic pain syndrome
CPT/HCPCS: 72040; 72072; 72100

== ENCOUNTER → 2024-11-27 15:14 | Outpatient (CLI) | payer OTHER, SELFPAY ==
--- NOTE | 2024-11-27 15:15 | DI.RAD.S_ITS ---
PROCEDURE: XR HIP W PEL IF DONE BILAT 2V INDICATIONS: bilateral hip pain TECHNIQUE: AP pelvis with lateral view(s) of the bilateral hip(s). COMPARISON: None. FINDINGS: Bones: No fractures or dislocations. Mild to moderate osteoarthritic degenerative changes of the bilateral hips include joint space narrowing, marginal osteophytosis and acetabular subchondral sclerosis. Pelvic ring appears intact. No suspicious bony lesions. Soft tissues: The visualized bowel gas pattern is normal. No suspicious soft tissue calcifications. IMPRESSION: Degenerative changes of the bilateral hips without evidence of acute bony abnormality. Dictated by: Gregg Garcia M.D. on 11/29/2024 at 0:24 Approved by: Gregg Garcia M.D. on 11/29/2024 at 0:25
--- NOTE | 2024-11-27 15:15 | DI.RAD.S_ITS ---
PROCEDURE: XR KNEE 2V WB RIGHT INDICATIONS: bilateral knee pain TECHNIQUE: 3 views of the knee were acquired. COMPARISON: None. FINDINGS: Bones: No fractures or dislocations. No suspicious bony lesions. Severe medial and moderate to severe lateral and patellofemoral compartment narrowing with associated osteophytosis. Mild lateral tibial subluxation and moderate varus angulation noted. Soft tissues: Small joint effusion. No suspicious soft tissue calcifications. IMPRESSION: KL grade 4 tricompartmental osteoarthritis without evidence of acute osseous abnormality. Lateral tibial subluxation and varus angulation noted. Dictated by: Gregg Garcia M.D. on 11/29/2024 at 0:17 Approved by: Gregg Garcia M.D. on 11/29/2024 at 0:19
--- NOTE | 2024-11-27 15:15 | DI.RAD.S_ITS ---
PROCEDURE: XR KNEE 2V WB LEFT INDICATIONS: bilateral knee pain TECHNIQUE: 2 views of the knee were acquired. COMPARISON: None. FINDINGS: Bones: No fractures or dislocations. No suspicious bony lesions. Moderate to severe medial and moderate lateral tibiofemoral and moderate to severe patellofemoral compartment narrowing with associated osteophytosis. Soft tissues: No joint effusion. No suspicious soft tissue calcifications. IMPRESSION: KL grade 3 tricompartmental osteoarthritis without evidence of acute osseous abnormality. Dictated by: Gregg Garcia M.D. on 11/29/2024 at 0:27 Approved by: Gregg Garcia M.D. on 11/29/2024 at 0:28
== END ==
PROVIDERS: PCP Family Medicine; Referring Provider Orthopaedic Surgery Adult Reconstructive Orthopaedic Surgery; Visit Provider Orthopaedic Surgery Adult Reconstructive Orthopaedic Surgery
DX: M17.0 Bilateral primary osteoarthritis of knee (principal); M25.461 Effusion, right knee; M21.161 Varus deformity, not elsewhere classified, right knee; M25.561 Pain in right knee; M25.562 Pain in left knee; M25.551 Pain in right hip; M25.552 Pain in left hip
CPT/HCPCS: 73521; 73560

== ENCOUNTER → 2025-05-03 11:46 | Outpatient (CLI) | payer OTHER, SELFPAY ==
--- NOTE | 2025-05-03 11:48 | DI.RAD.S_ITS ---
PROCEDURE: XR SHOULDER RT MIN 2V INDICATIONS: right shoulder chronic pain TECHNIQUE: 3 views of the shoulder were acquired. COMPARISON: None. FINDINGS: Bones: No fractures or dislocations. Moderate acromioclavicular joint osteoarthritic changes are seen. No suspicious bony lesions. Visualized ribs appear intact. Soft tissues: No suspicious soft tissue calcifications. IMPRESSION: Moderate acromioclavicular joint osteoarthritis. No shoulder fracture or dislocation. No gross soft tissue abnormalities. Dictated by: Rd Zacarias M.D. on 05/03/2025 at 16:04 Approved by: Rd Zacarias M.D. on 05/03/2025 at 16:13
[2025-05-03 12:34] LABS: Add Manual Diff / Slide Review NO; Hematocrit 44.1 % (36-46); Hemoglobin 14.7 g/dL (12.0-16.0); Lymphocytes Absolute Auto 1500 /uL (1100-4500); Mean Corpuscular HGB Conc 33.3 % (30-36); Mean Corpuscular Hemoglobin 28.3 PG (26-34); Mean Corpuscular Volume 85.2 fL (80-100); Platelet Count 284 X10^3/uL (150-400)
[2025-05-03 13:00] LABS: Alanine Aminotransferase 30 IU/L (<35); Albumin 4.9 g/dL (3.5-5.0); Albumin Globulin Ratio 1.8 (1.0-2.8); Alkaline Phosphatase 78 U/L (38-126); Blood Urea Nitrogen 19 mg/dL (7-17); Calcium 9.5 mg/dL (8.4-10.2); Carbon Dioxide 29 mmol/L (22-32); Chloride 102 mmol/L (98-107); Estimated Glomerular Filt Rate > 60 mL/min (>60); Globulin 2.8 g/dL (1.7-4.1); Glucose 90 mg/dL (70-99); HDL Cholesterol 73 mg/dL (40-60); HEMOLYSIS < 15 (0-50); Potassium 4.9 mmol/L (3.4-5.1); Sodium 141 mmol/L (137-145); Total Protein 7.7 g/dL (6.3-8.2); Triglycerides 133 mg/dL (35-150)
[2025-05-03 13:05] LABS: Appearance Urine UA SL CLOUDY; Bilirubin Urine UA NEGATIVE (NEGATIVE); Color Urine UA YELLOW; Glucose Urine UA NEGATIVE (Negative); Ketones Urine UA NEGATIVE (NEGATIVE); Leukocyte Esterase Urine UA 1+ (NEGATIVE); Nitrite Urine UA NEGATIVE (Negative); Occult Blood Urine UA NEGATIVE (Negative); Protein Urine UA NEGATIVE (Negative); Specific Gravity Urine UA 1.015 (1.000-1.035); Urobilinogen Urine UA 0.2 E.U./dL (0.2)
[2025-05-03 13:08] LABS: Cholesterol 372 mg/dL (140-199)
[2025-05-03 13:26] LABS: pH Urine UA 6.0 (4.5-8.0)
[2025-05-03 13:28] LABS: Culture Indicated Urine Specimen Cultured
[2025-05-03 13:51] LABS: TSH w/ Reflex to FT4 0.48 uIU/mL (0.47-4.68)
[2025-05-03 14:15] LABS: Microalbumi Creatinin Ratio Ur 7.0 ug/mg CR (<30)
[2025-05-03 14:25] LABS: Urine N gonorrhoeae NOT DETECTED
[2025-05-03 14:42] LABS: Urine Chlamydia NOT DETECTED
== END ==
PROVIDERS: Nurse Practitioner Family; PCP Family Medicine; Referring Provider Family Medicine; Visit Provider Family Medicine
DX: M25.511 Pain in right shoulder (principal); E78.49 Other hyperlipidemia; G43.909 Migraine, unspecified, not intractable, without status migrainosus; G89.4 Chronic pain syndrome; R30.0 Dysuria; N89.8 Other specified noninflammatory disorders of vagina; M54.59 Other low back pain; M19.011 Primary osteoarthritis, right shoulder
CPT/HCPCS: 73030; 80053; 80061; 81001; 82043; 82570; 84443; 85025; 87086; 87491; 87591